=== PATIENT | male | born 1950 | race Hispanic/Latino ===

== ENCOUNTER 2022-10-27 10:41 | Inpatient (IN) | payer MEDICARE ==
[~2022-10-27] VITALS: Ht 185.4 cm; Wt 62.9 kg
[~2022-10-27 10:41] MED LIST: ACET-66 PO; BACL10TA PO; ENZA80TA PO; IRON1CAP28 PO; MAGIC240 MM; TRAM50TA4 PO
[2022-10-27] MEDS ORDERED: IOHEXOL-350 75 ML VIAL IV ONE (11:09)
[2022-10-27 11:26] LABS: BASOPHILS % (AUTO) 0.1 % (0.0-5.0); EOSINOPHILS % (AUTO) 0.2 % (0.0-8.0); HEMATOCRIT 31.3 % (42-54); LYMPHOCYTES % (AUTO) 7.3 % (21.0-51.0); MEAN CORPUSCULAR HEMOGLOBIN 24.7 pg (27.0-33.0); MEAN CORPUSCULAR HGB CONC 31.6 g/dL (32.0-36.0); MEAN CORPUSCULAR VOLUME 78.1 fL (79-99); MONOCYTES % (AUTO) 10.3 % (3.0-13.0); NEUTROPHILS % (AUTO) 81.8 % (40.0-77.0); PLATELET COUNT (AUTO) 284 K/uL (130-400); RED BLOOD CELL COUNT(AUTO) 4.01 MIL/uL (4.50-6.20); RED CELL DISTRIBUTION WIDTH 17.8 % (11.0-15.5); WHITE BLOOD COUNT (AUTO) 9.5 K/uL (4.8-10.8)
[2022-10-27 11:35] LABS: CREATININE 1.3 mg/dL (0.5-1.5); POTASSIUM 3.2 mmol/L (3.5-5.1)
[2022-10-27 11:44] LABS: ALBUMIN 2.5 g/dL (3.5-5.0); TOTAL PROTEIN, SERUM 7.2 g/dL (6.0-8.3)
[2022-10-27] MEDS ORDERED: 0.9%NACL 1000ML 1,000 ML IV ONE (12:00)
[2022-10-27] MEDS ORDERED: VANCOMYCIN PROTOCOL PER PHARMACY IV SCH (16:38)
[2022-10-27] MEDS ORDERED: 0.9%NACL 50ML IV SCH (17:00)
[2022-10-27] MEDS ORDERED: VANCOMYCIN 1.25 GM/250 ML BAG 250 ML IV ONE (17:00)
[2022-10-27] MEDS ORDERED: ZOSYN 3.375GM+NS 50ML 50 ML IVPB ONE (17:02)
[2022-10-27] MEDS: DEXTROSE 5 %-0.45 % NACL 1,000 ML IV SCH (17:15)
[2022-10-27] MEDS: ZOSYN 3.375GM +NS 50ML IVPB SCH (17:16)
[2022-10-27] MEDS ORDERED: BACITRACIN 1 EACH PACKET TP ONE (17:30)
[2022-10-27 18:30] VITALS: BP 110/56
[2022-10-27] MEDS ORDERED: LIDOCAINE HCL-MPF 1% 2ML VIAL IV PRN (19:00)
[2022-10-27] MEDS ORDERED: PANT40I IV (19:06)
[2022-10-27] MEDS ORDERED: BALS60OI TP (19:06)
[2022-10-27] MEDS ORDERED: PIPE3.379 IV (19:06)
[2022-10-27] MEDS ORDERED: LACT10SO9 PO (19:06)
[2022-10-27] MEDS ORDERED: TRAM50TA4 PO (19:06)
[2022-10-27] MEDS ORDERED: IRON1CAP28 PO (19:06)
[2022-10-27] MEDS ORDERED: ENZA80TA PO (19:06)
[2022-10-27] MEDS ORDERED: VANC1PIG IV (19:06)
[2022-10-27] MEDS ORDERED: ONDA22I IV (19:06)
[2022-10-27] MEDS ORDERED: ZINC28.45 TP (19:06)
[2022-10-27] MEDS ORDERED: DAKINS.5S MISC (19:06)
[2022-10-27 20:00] VITALS: BP 118/55
[2022-10-27] MEDS: POTASSIUM CHLORIDE 20MEQ/100ML 100 ML IV PRN (21:16)
[2022-10-28] VITALS (7 sets, daily range): BP systolic 111–119; BP diastolic 49–63
[2022-10-28] MEDS: ZOSYN 3.375GM +NS 50ML IVPB SCH ×3 (00:21→17:23)
[2022-10-28] MEDS: POTASSIUM CHLORIDE 20MEQ/100ML 100 ML IV PRN ×3 (00:22→17:23)
[2022-10-28] MEDS: DEXTROSE 5 %-0.45 % NACL 1,000 ML IV SCH ×3 (03:04→22:37)
[2022-10-28 06:38] LABS: EOSINOPHILS % (AUTO) 1.4 % (0.0-8.0); HEMATOCRIT 24.4 % (42-54); LYMPHOCYTES % (AUTO) 8.4 % (21.0-51.0); MEAN CORPUSCULAR HEMOGLOBIN 24.9 pg (27.0-33.0); MEAN CORPUSCULAR HGB CONC 31.6 g/dL (32.0-36.0); NEUTROPHILS % (AUTO) 77.6 % (40.0-77.0); PLATELET COUNT (AUTO) 209 K/uL (130-400); RED BLOOD CELL COUNT(AUTO) 3.09 MIL/uL (4.50-6.20); RED CELL DISTRIBUTION WIDTH 17.8 % (11.0-15.5)
[2022-10-28 07:02] LABS: ALBUMIN 2.1 g/dL (3.5-5.0); CREATININE 0.8 mg/dL (0.5-1.5); POTASSIUM 3.3 mmol/L (3.5-5.1); TOTAL PROTEIN, SERUM 6.3 g/dL (6.0-8.3)
[2022-10-28] MEDS: BACITRACIN 1 EACH PACKET TP SCH (09:17)
[2022-10-28] MEDS: VANCOMYCIN 1G/250ML KIT 250 ML IV SCH (11:55)
[2022-10-28] MEDS ORDERED: HONEY 1 APPL/ML TUBE TP SCH (18:00)
[2022-10-29] MEDS: ZOSYN 3.375GM +NS 50ML IVPB SCH ×3 (00:58→17:32)
[2022-10-29 03:18] VITALS: BP 176/57
[2022-10-29] MEDS ORDERED: IOHEXOL 350 MG/ML 100ML INFUS..BTL IV ONE (05:55)
[2022-10-29 08:00] VITALS: BP 115/62
[2022-10-29 08:08] LABS: HEMATOCRIT 25.7 % (42-54); MEAN CORPUSCULAR HEMOGLOBIN 25.1 pg (27.0-33.0); MEAN CORPUSCULAR HGB CONC 31.1 g/dL (32.0-36.0); MEAN CORPUSCULAR VOLUME 80.6 fL (79-99); RED BLOOD CELL COUNT(AUTO) 3.19 MIL/uL (4.50-6.20); RED CELL DISTRIBUTION WIDTH 17.9 % (11.0-15.5); WHITE BLOOD COUNT (AUTO) 4.7 K/uL (4.8-10.8)
[2022-10-29 08:21] LABS: CREATININE 0.6 mg/dL (0.5-1.5); MAGNESIUM 1.9 mg/dL (1.80-2.40); POTASSIUM 3.2 mmol/L (3.5-5.1)
[2022-10-29] MEDS: BACITRACIN 1 EACH PACKET TP SCH (09:11)
[2022-10-29 12:00] VITALS: BP 100/51
[2022-10-29] MEDS: DEXTROSE 5 %-0.45 % NACL 1,000 ML IV SCH ×2 (13:02→18:31)
[2022-10-29] MEDS: VANCOMYCIN 1G/250ML KIT 250 ML IV SCH (13:27)
[2022-10-29 15:20] VITALS: BP 115/84
[2022-10-29] MEDS: POTASSIUM CHLORIDE 20MEQ/100ML 100 ML IV PRN (18:30)
[2022-10-29 20:05] VITALS: BP 112/65
[2022-10-30 00:43] VITALS: BP 117/59
[2022-10-30] MEDS: ZOSYN 3.375GM +NS 50ML IVPB SCH ×3 (01:13→17:56)
[2022-10-30 04:03] VITALS: BP 116/59
[2022-10-30] MEDS: DEXTROSE 5 %-0.45 % NACL 1,000 ML IV SCH ×2 (04:45→15:15)
[2022-10-30 08:10] VITALS: BP 97/50
[2022-10-30] MEDS: BACITRACIN 1 EACH PACKET TP SCH (09:50)
[2022-10-30] MEDS ORDERED: HONEY 1 APPL/ML TUBE TP SCH (10:30)
[2022-10-30] MEDS ORDERED: LACTULOSE 20 GM/30 ML UDCUP PO PRN ×2 (10:30→13:00)
[2022-10-30] MEDS ORDERED: LACTULOSE 20 GM/30 ML UDCUP PO ONE (10:30)
[2022-10-30 10:39] LABS: MEAN CORPUSCULAR HEMOGLOBIN 25.1 pg (27.0-33.0); MEAN CORPUSCULAR HGB CONC 31.1 g/dL (32.0-36.0); MEAN CORPUSCULAR VOLUME 80.7 fL (79-99); RED BLOOD CELL COUNT(AUTO) 3.47 MIL/uL (4.50-6.20); RED CELL DISTRIBUTION WIDTH 18.3 % (11.0-15.5); WHITE BLOOD COUNT (AUTO) 4.2 K/uL (4.8-10.8)
[2022-10-30 10:52] LABS: CREATININE 0.6 mg/dL (0.5-1.5); POTASSIUM 3.6 mmol/L (3.5-5.1)
[2022-10-30 11:29] VITALS: BP 107/51
[2022-10-30] MEDS ORDERED: TRAMADOL HCL 50 MG TABLET PO PRN (13:00)
[2022-10-30] MEDS ORDERED: ONDANSETRON 4MG INJ IV PRN (13:00)
[2022-10-30] MEDS: VANCOMYCIN 1.25 GM/250 ML BAG 250 ML IV SCH (13:40)
[2022-10-30] MEDS: BACLOFEN 10 MG TABLET PO SCH ×2 (13:59→22:44)
[2022-10-30] MEDS: POTASSIUM CHLORIDE 20MEQ/100ML 100 ML IV PRN (15:25)
[2022-10-30 16:22] VITALS: BP 111/51
[2022-10-30 21:12] VITALS: BP 128/62
[2022-10-31] MEDS: ZOSYN 3.375GM +NS 50ML IVPB SCH ×2 (00:51→09:11)
[2022-10-31] MEDS: DEXTROSE 5 %-0.45 % NACL 1,000 ML IV SCH ×2 (01:00→12:21)
[2022-10-31 03:45] VITALS: BP 128/55
[2022-10-31 08:03] VITALS: BP 112/50
[2022-10-31] MEDS ORDERED: XTANDI 160 MG PO SCH (09:00)
[2022-10-31] MEDS ORDERED: [UNRECOGNIZED DRUG - OTHER] PO SCH (09:00)
[2022-10-31] MEDS ORDERED: ACETAMINOPHEN 500 MG TABLET PO SCH (09:00)
[2022-10-31] MEDS ORDERED: PANTOPRAZOLE 40 MG/VIAL IV SCH (09:00)
[2022-10-31] MEDS: BACITRACIN 1 EACH PACKET TP SCH (09:12)
[2022-10-31] MEDS: BACLOFEN 10 MG TABLET PO SCH (09:12)
[2022-10-31] MEDS: VANCOMYCIN 1.25 GM/250 ML BAG 250 ML IV SCH (12:22)
[2022-10-31 12:26] VITALS: BP 88/52
[2022-10-31 16:00] VITALS: BP 111/57
== END 2022-10-31 17:30 | DRG 388 ==
LOC: EDH 10:41 → EDHIP 16:27 → 3CH 17:54
PROVIDERS: ADMIT Internal Medicine Hematology & Oncology; ATTEND Internal Medicine Hematology & Oncology
PROC: 0D9670Z Drainage of Stomach with Drainage Device, Via Natural or Artificial Opening (ICD-10-PCS; principal; 2022-10-27)
PROC: 02HV33Z Insertion of Infusion Device into Superior Vena Cava, Percutaneous Approach (ICD-10-PCS; 2022-10-27)
PROC: 0HBDXZZ Excision of Right Lower Arm Skin, External Approach (ICD-10-PCS; 2022-10-28)
DX: K56.699 Other intestinal obstruction unspecified as to partial versus complete obstruction (principal); E43 Unspecified severe protein-calorie malnutrition; C79.51 Secondary malignant neoplasm of bone; L02.413 Cutaneous abscess of right upper limb; M86.8X2 Other osteomyelitis, upper arm; J98.11 Atelectasis; G72.81 Critical illness myopathy; M06.9 Rheumatoid arthritis, unspecified; E86.0 Dehydration; C61 Malignant neoplasm of prostate; Z85.72 Personal history of non-Hodgkin lymphomas
CPT/HCPCS: 36415; 71045; 74177; 80048; 80053; 80202; 83690; 83735; 85025; 85027; 93005; 97039; C9113; G0378; J2543; J3370; J3480; J3490; Q9967